=== PATIENT | male | born 1965 | race Caucasian/White ===

== ENCOUNTER 2016-07-31 | Emergency (ER) | payer BC ==
[2016-07-31 00:07] VITALS: BP 138/74; PULSE 71; RESP 18; TEMP 97.8
--- NOTE | 2016-07-31 00:24 | ED ---
Wound/Laceration HPI - General Chief Complaint: Wound/Laceration Stated Complaint: Lip Lac Time Seen by Provider: 07/31/16 00:13 Source: patient, RN notes reviewed Mode of arrival: ambulatory Limitations: no limitations - History of Present Illness Initial Comments: 50-year-old male presents emergency department with a chief complaint of lip laceration. This happened. He is intravenous tenderness he has no pain. He states that it was through the lid border so he thought that he should have stitches. He denies any other injuries he states he did not hit his head he did not pass out he has no neck pain he has no teeth pain he has now not mouth pain. Patient denies any recent fever, chills, shortness of breath, chest pain, back pain, abdominal pain, nausea vomiting, numbness or tingling, dysuria or hematuria, constipation or diarrhea, headaches or visual changes, or any other current symptoms. - Related Data Home Medications Medication Instructions Recorded Confirmed No Known Home Medications [No 07/31/16 07/31/16 Known Home Medications] Allergies Allergy/AdvReac Type Severity Reaction Status Date / Time No Known Allergies Allergy Verified 07/31/16 00:07 Review of Systems ROS Statement: Those systems with pertinent positive or pertinent negative responses have been documented in the HPI. ROS Other: All systems not noted in ROS Statement are negative. Past Medical History Past Medical History: No Reported History History of Any Multi-Drug Resistant Organisms: None Reported Past Surgical History: Hernia Repair, Orthopedic Surgery Past Psychological History: No Psychological Hx Reported Smoking Status: Never smoker Past Alcohol Use History: Occasional Past Drug Use History: None Reported General Exam Limitations: no limitations General appearance: alert, in no apparent distress Head exam: Present: other (Patient has1 cm lip laceration to the right lower lip.) Eye exam: Present: normal appearance, PERRL, EOMI. Absent: scleral icterus, conjunctival injection, periorbital swelling ENT exam: Present: normal exam, mucous membranes moist Neck exam: Present: normal inspection. Absent: tenderness, meningismus, lymphadenopathy Respiratory exam: Present: normal lung sounds bilaterally. Absent: respiratory distress, wheezes, rales, rhonchi, stridor Cardiovascular Exam: Present: regular rate, normal rhythm, normal heart sounds. Absent: systolic murmur, diastolic murmur, rubs, gallop, clicks Neurological exam: Present: alert, oriented X3, CN II-XII intact. Absent: motor sensory deficit Psychiatric exam: Present: normal affect, normal mood Skin exam: Present: warm, dry, intact, normal color. Absent: rash Course Vital Signs 07/31/16 00:03 Temperature 97.8 F Pulse Rate 71 Respiratory 18 Rate Blood Pressure 138/74 O2 Sat by Pulse 97 Oximetry Procedures - Procedures Initial comment: The laceration was then cleansed with Betadine and irrigated with normal saline. The wound was inspected, and there was no evidence of injury to deep structures. No foreign body was noted in the wound. A total of 2 skin sutures were placed utilizing 6-0 nylon to a 1 cm lip laceration Medical Decision Making - Medical Decision Making 50-year-old male presents for lip laceration. Patient underwent suture care. Discussed care of follow-up. We discussed return parameters. Patient stated he understood all cushions were answered. He will be discharged. Disposition Clinical Impression: Laceration of lip Disposition: HOME SELF-CARE Condition: Stable Instructions: Laceration (ED) Additional Instructions: Please use medication as discussed. Please follow up with family doctor if symptoms have not improved over the next two days. Please return to the emergency room if your symptoms increase or worsen or for any other concerns. Please return to the emergency room in 5 days to have sutures removed. Please leave wound covered for the first 24-48 hours and then leave open to air after that time. Please use clean soap and water to clean the suture area to prevent scabbing over the top of your sutures. Please watch for any signs of infection which may include but not limited to increased pain, swelling, redness, fever or chills. Please return to the emergency room if any signs of infection do occur. Please return to the emergency room for any other concerns or complications. Referrals: Yoel Wallace MD [Primary Care Provider] - 1-2 days Time of Disposition: 00:24
== END 2016-07-31 00:30 | disposition home or self-care (01) ==
LOC: EC
DX: S01.511A Laceration without foreign body of lip, initial encounter (principal); W21.210A Struck by ice hockey stick, initial encounter; Y93.65 Activity, lacrosse and field hockey
CPT/HCPCS: 12011; 99282

== ENCOUNTER 2018-03-06 09:01 | Day surgery (SDC) | payer BC ==
[2018-03-05 08:02] VITALS: BMI 32.5
[~2018-03-06 09:01] MED LIST: LACTATED RINGERS 1,000 ML IV SCH; LIDOCAINE 1% 20 ML VIAL (10MG/ML) FOR IV START INTRADERMA PRN; MIDAZOLAM 2 MG/2 ML VIAL IV PRN
[2018-03-06 09:32] VITALS: RESP 18; TEMP 97
[2018-03-06] MEDS ORDERED: LIDOCAINE 1% 20 ML VIAL (10MG/ML) FOR IV START INTRADERMA ONE (09:39)
[2018-03-06] MEDS ORDERED: LIDOCAINE 1% INJ 10MG/ML (20 ML MDV) ONE (10:18)
[2018-03-06] MEDS ORDERED: PROPOFOL 10 MG/ML 50 ML VIAL IV ONE (10:18)
[2018-03-06] MEDS ORDERED: PROPOFOL 10 MG/ML 20 ML VIAL IV ONE (10:18)
--- NOTE | 2018-03-06 11:01 | P.PCN ---
Date of Procedure: 03/06/18 Procedure(s) Performed: Procedure: 1. Esophagogastroduodenoscopy and biopsy. 2. Total colonoscopy. Preoperative diagnosis: Reflux symptoms and screening colonoscopy. Postoperative diagnosis: 1. Mild antral gastritis with no obvious esophagitis or complicated reflux disease. 2. Sigmoid diverticulosis with no evidence of acute diverticulitis, strictures, polyps or cancer. Preparation: HalfLytely prep. Sedation: Was provided by anesthesia. Brief clinical history: The patient is a 52-year-old male who has been experiencing heartburn and postprandial stomach upset for the last 6 months or so. The patient has seen his PCP and on rectal examination while in the office he was found to have positive occult blood on his stools. He has no history of overt bleeding or change in bowel habits. His last endoscopies were in 2008. Procedure: With the patient on his left lateral decubitus position and after informed consent and adequate sedation, the Olympus-GIF 160 video upper endoscope was used and was advanced under direct vision through the cricopharyngeus down the esophagus. GE junction was around 42-43 cm from the incisors and there was no definite hiatal hernia. The esophagus did not show any obvious esophagitis or complicated reflux disease. The endoscope was then passed into the stomach which was insufflated with air and inspected in detail including the retroflex view in the cardia. There was some mottling and erythema in the antrum but no ulcers or erosions. Pyloric channel, duodenal bulb, post bulbar area and descending duodenum appeared within normal limits. Because of his symptoms, I obtained biopsies from the duodenum, antrum and esophagus then the endoscope was withdrawn and I proceeded with the colonoscopy. Perianal area did not show any fissures or fistulas. There were no masses felt on digital rectal examination. The Olympus CFQ 160L video colonoscope was then inserted in the rectum in the usual fashion and advanced to the cecum. There were a few diverticular orifices seen scattered in the sigmoid but I saw no evidence of acute diverticulitis or strictures. There was no obvious polyps or tumors seen. The mucosa appeared healthy. I retroflexed the endoscope in the rectum before the endoscope was withdrawn. The patient tolerated the procedure well. Plan: The patient was reassured. He will continue current acid suppressive therapy you have started Will await biopsy results and make further recommendations based on his course and biopsy results. He will follow up with you as planned and I recommended repeat colonoscopy in 10 years. I will be happy to see in the office if his symptoms persist or change.
[2018-03-06 11:16] VITALS: BP 107/69; PULSE 47
== END 2018-03-06 11:49 | disposition home or self-care (01) ==
LOC: ORWHC2ENDO 09:01
DX: K29.50 Unspecified chronic gastritis without bleeding (principal); K57.30 Diverticulosis of large intestine without perforation or abscess without bleeding; K21.0 Gastro-esophageal reflux disease with esophagitis
CPT/HCPCS: 88305; 45378; 43239; J2001; J2704

== ENCOUNTER → 2018-06-23 | Outpatient (CLI) | payer BC ==
--- NOTE | 2018-06-23 09:38 | CT ---
EXAMINATION TYPE: CT soft tissue neck w con DATE OF EXAM: 06/23/2018 7:31 AM COMPARISON: None HISTORY: Swelling, mass, lump in left neck CT DLP: 729 mGycm Automated exposure control for dose reduction was used. CONTRAST: CT scan of the neck is performed following with IV Contrast, patient injected with 100 mL of Isovue 3 00. Axial images are obtained, coronal and sagittal reformatted images are reviewed. FINDINGS: Airway: Pathology tonsils show some calcifications consistent with chronic infection, there is some a ssociated thickening, correlate for pharyngitis. Parotid/submandibular glands: Left submandibular gland is slightly enlarged as compared to the right , no definite calculus or inflammatory change identified. Carotid/Vascular Structures: Patent Osseous Structures: Degenerative disc changes are present in the visualized spine. Other: There are inflammatory changes in the bilateral maxillary sinus. Orbits show symmetric appeara nce. IMPRESSION: Asymmetric appearance of the submandibular gland could be normal variant. No discrete ca lculus or inflammatory change. Correlate for pharyngitis.
== END | disposition home or self-care (01) ==
LOC: RADCTMAIN 07:03
PROVIDERS: ATTEND Otolaryngology
DX: R22.1 Localized swelling, mass and lump, neck (principal)
CPT/HCPCS: 70491; Q9967

== ENCOUNTER 2018-07-24 06:43 | Day surgery (SDC) | payer BC ==
[2018-07-23 09:07] VITALS: BMI 32.5
[~2018-07-24 06:43] MED LIST changes: +DEXAMETHASONE SOD PHOSPHATE 10 MG/ML 1 ML VIAL IV ONE; +DEXAMETHASONE SOD PHOSPHATE 4 MG/ML 1 ML VIAL IV ONE; +FAMOTIDINE 20 MG/2 ML VIAL IV ONE; +HYDROmorphone 0.5 MG/0.5 ML SYRINGE IVP PRN; -MIDAZOLAM 2 MG/2 ML VIAL IV PRN; +ONDANSETRON 4 MG/2 ML VIAL IVP ONE; +SCOPOLAMINE 1.5MG/72HR PATCH TRANSDERM ONE; +ceFAZolin 1,000 MG in DEXTROSE/WATER 1 50ML.BAG IV ONE
[2018-07-24] MEDS ORDERED: LIDOCAINE 1%-EPI 1:100,000 20 ML VIAL SQ ONE (07:22)
[2018-07-24] MEDS ORDERED: ROCURONIUM BROMIDE 10 MG/ML 10 ML VIAL IV ONE (07:23)
[2018-07-24] MEDS ORDERED: DEXAMETHASONE SOD PHOS (MDV) 100 MG/10 ML VIAL ONE (07:23)
[2018-07-24] MEDS ORDERED: PROPOFOL 10 MG/ML 20 ML VIAL IV ONE (07:23)
[2018-07-24] MEDS ORDERED: fentaNYL (PF) 50 MCG/ML 2 ML AMP ONE (07:23)
[2018-07-24] MEDS ORDERED: MIDAZOLAM 2 MG/2 ML VIAL ONE (07:23)
[2018-07-24] MEDS ORDERED: LIDOCAINE 1% INJ 10MG/ML (20 ML MDV) ONE (07:23)
[2018-07-24 08:26] VITALS: TEMP 97.8
--- NOTE | 2018-07-24 08:38 | P.OP ---
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 Patient's been on multiple antibiotics. We originally recommended surgical removal of this left submandibular gland but the patient wishes to try a conservative approach with a Dr. bundy and the balloon dilatation of the docs. He understands that the cure rate is not 100% but he is willing to try this more conservative procedure so he can preserve the gland. I did review the results of the patient's CAT scan demonstrating some sialolithiasis at the floor the mouth and stenosis of the left submandibular duct Operative Findings: Patient had significant stenosis of the left submandibular duct. Small stones were extracted and the duct was dilated multiple adhesions were encountered Description of Procedure: This patient was taken to the operative room and placed in the supine position. A general inhalation anesthetic was administered to the patient by mask and subsequently intubated with a cuffed endotracheal tube by the department of anesthesia. The patient was monitored throughout the entire case by the department of anesthesia. A functioning IV line was in place. The mouth was opened and a bite block was placed. The left Warthin's duct was identified and the ductal orifice was dilated. We passed multiple lacrimal probes and dilated the duct. Small pieces of stone was extruding from the orifice. We dilated the duct as far as possible for 3 mm dilatation. We utilized a lacrimal dilatation catheter for the dilatation. The patient tolerated this well and the patient was taken to postanesthesia recovery in excellent condition. Excellent salivary flow was encountered.
[2018-07-24 08:41] VITALS: RESP 18
[2018-07-24 09:28] VITALS: BP 125/84; PULSE 65
== END 2018-07-24 09:47 | disposition home or self-care (01) ==
LOC: OR 06:43
PROVIDERS: ATTEND Otolaryngology
DX: K11.23 Chronic sialoadenitis (principal); K11.5 Sialolithiasis; K11.8 Other diseases of salivary glands; Z79.891 Long term (current) use of opiate analgesic; Z79.899 Other long term (current) drug therapy; E78.5 Hyperlipidemia, unspecified
CPT/HCPCS: 42650; C1726; J2250; J1100 ×2; J2405; J2001; J3010; J0690; J2704

== ENCOUNTER → 2019-02-05 | Outpatient (CLI) | payer BC ==
--- NOTE | 2019-02-05 16:10 | US ---
EXAMINATION TYPE: US abdomen complete DATE OF EXAM: 02/05/2019 COMPARISON: NONE CLINICAL HISTORY: R10.11 RUQ ABD PAIN. EXAM MEASUREMENTS: Liver Length: 14.4 cm Gallbladder Wall: 0.2 cm CBD: 0.3 cm Spleen: 11.0 cm Right Kidney: 13.1 x 4.8 x 5.4 cm Left Kidney: 12.8 x 5.8 x 5.5 cm Pancreas: Partially obscured by bowel gas, portions visualized wnl Liver: slightly heterogeneous Gallbladder: some dependant sludge Evidence for sonographic Tapia's sign: no CBD: wnl Spleen: wnl Right Kidney: measures large Left Kidney: measures large Upper IVC: wnl Abd Aorta: proximal aorta measures 3.3 x 3.3cm, otherwise wnl, bifurcation obscured by bowel gas IMPRESSION: 1. No acute ultrasound abnormality of the abdomen
== END | disposition home or self-care (01) ==
LOC: RADUSWWP 06:48
PROVIDERS: ATTEND Internal Medicine
DX: R10.11 Right upper quadrant pain (principal)
CPT/HCPCS: 76700

== ENCOUNTER 2019-10-17 22:58 | Emergency (ER) | payer BC ==
[2019-10-17 23:06] VITALS: RESP 16; TEMP 97.9
[2019-10-17] MEDS ORDERED: KETOROLAC 60 MG/2 ML VIAL IM STA (23:54)
[2019-10-17] MEDS ORDERED: KETOROLAC 30 MG/ML 1 ML VIAL IVP STA (23:55)
[2019-10-17] MEDS ORDERED: MORPHINE SULFATE 4 MG/ML SYRINGE IV STA (23:56)
--- NOTE | 2019-10-18 00:23 | XR ---
EXAMINATION TYPE: XR knee 4V RT DATE OF EXAM: 10/18/2019 COMPARISON: NONE HISTORY: Knee pain TECHNIQUE: 4 views FINDINGS: I see no fracture nor dislocation. Joint spaces are fairly normal. There is no definite freddy nt effusion. There is minor spurring on the patella. IMPRESSION: No acute abnormality of the right knee. No fracture seen.
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
[2019-10-18] MEDS ORDERED: ACET/COD 300 MG/30 MG STARTER PACK 6 TAB BTL PO STA (00:57)
[2019-10-18 01:34] VITALS: BP 125/75; PULSE 72
== END 2019-10-18 01:33 | disposition home or self-care (01) ==
LOC: EC 22:58
DX: S83.91XA Sprain of unspecified site of right knee, initial encounter (principal); M25.461 Effusion, right knee; S90.819A Abrasion, unspecified foot, initial encounter; E78.5 Hyperlipidemia, unspecified; Z79.899 Other long term (current) drug therapy; Z98.890 Other specified postprocedural states; V19.3XXA Pedal cyclist (driver) (passenger) injured in unspecified nontraffic accident, initial encounter; Y92.488 Other paved roadways as the place of occurrence of the external cause; Y93.55 Activity, bike riding
CPT/HCPCS: 73564; 99284; 96374; 96375; J2270; J1885

== ENCOUNTER → 2019-11-13 | Outpatient (CLI) | payer BC ==
--- NOTE | 2019-11-13 09:55 | CT ---
EXAMINATION TYPE: CT abdomen pelvis wo con DATE OF EXAM: 11/13/2019 COMPARISON: 05/09/2016 HISTORY: midline pelvic pain, history of pelvic mesh surgery, renal stone protocol CT DLP: 1080.7 mGycm Automated exposure control for dose reduction was used. TECHNIQUE: Helical acquisition of images was performed from the lung bases through the pelvis. FINDINGS: LUNG BASES: No significant abnormality is appreciated. LIVER/GB: Low-attenuation the liver can be associated with hepatic steatosis. No definite calcified g allstones although there is intermediate density within the gallbladder which could be associated wit h gallbladder sludge. PANCREAS: No significant abnormality is seen. SPLEEN: No significant abnormality is seen. ADRENALS: 7 mm nodularity left adrenal gland stable and too small to characterize KIDNEYS: There is a nonobstructing 1 mm right lower pole renal calculus.. ADENOPATHY: None visualized. OSSEOUS STRUCTURES: Mild hypertrophic change vertebral column.. BOWEL: There is changes of diverticulosis in the lower pelvis with mild pericolonic inflammatory paola nge adjacent the sigmoid colon noted on image 120 08/15/2024 suggestive of mild acute diverticulitis. N o free air or abscess. Appendix normal. Single prominent small bowel loop in the lower abdomen may be related to ileus secondary to the suspected diverticulitis. Correlate clinically. Other etiologies n ot excluded. OTHER: Post surgical changes involving the anterior abdominal wall. There is prostate calcifications. IMPRESSION: 1. Correlate for mild uncomplicated acute sigmoid diverticulitis. Follow-up to resolution recommended to exclude underlying mucosal lesion. 2. Postsurgical changes. 3. Nonobstructing 1 mm lower pole right renal calculus.
== END | disposition home or self-care (01) ==
LOC: RADCTMAIN 09:10
PROVIDERS: ATTEND Internal Medicine
DX: K57.32 Diverticulitis of large intestine without perforation or abscess without bleeding (principal); N20.0 Calculus of kidney
CPT/HCPCS: 74176

== ENCOUNTER → 2020-06-27 | Outpatient (CLI) | payer BC ==
--- NOTE | 2020-06-27 11:32 | ECHOS ---
STRESS ECHOCARDIOGRAM DATE OF SERVICE: 06/27/2020 LUMASON: Vial INDICATIONS: Chest pain. MEDICATIONS: BASELINE HEART RATE: 54 BASELINE BLOOD PRESSURE: 131/65 MAXIMUM HEART RATE: 137 MAXIMUM BLOOD PRESSURE: 135/77 85% MPHR: 142 100% MPHR: 167 METS: 11.7 MAXIMUM STAGE REACHED: IV TOTAL EXERCISE TIME: 10 minutes 39 seconds CLINICAL INFORMATION: STRESS DATA: Heart rate 54, pressure is 131/65 mmHg. Baseline EKG showed sinus mechanism. The patient exercised on the treadmill according to Pb protocol for a total of 10 minutes and 39 seconds and achieved 11.7 METs. Max heart rate was 137 which is about 82% of maximum predicted heart rate. Maximum blood pressure was 135/77 mmHg. Clinically, the patient did not have any symptoms of chest pain or chest discomfort. The EKG did not show any significant ST or T-wave abnormalities concerning for ischemia. Analysis on echocardiogram images from parasternal long axis view, parasternal short axis view, apical 4 chamber and apical 2 chamber obtained as the baseline images, at the peak of the heart rate as well as on recovery. The echocardiogram images showed good augmentation in the left ventricular systolic function. CONCLUSION: 1. Excellent exercise tolerance. 2. Normal EKG in response to exercise. 3. Normal echocardiogram in response to exercise. MMODL / IJN: [id number] /
== END | disposition home or self-care (01) ==
LOC: RADNMMAIN 09:03
PROVIDERS: ATTEND Internal Medicine
DX: R07.9 Chest pain, unspecified (principal)
CPT/HCPCS: 93351

== ENCOUNTER → 2020-08-31 | Day surgery (SDC) | payer BC ==
[2020-08-30 09:35] VITALS: BMI 32.5
[~2020-08-31] MED LIST changes: -DEXAMETHASONE SOD PHOSPHATE 10 MG/ML 1 ML VIAL IV ONE; -DEXAMETHASONE SOD PHOSPHATE 4 MG/ML 1 ML VIAL IV ONE; -FAMOTIDINE 20 MG/2 ML VIAL IV ONE; -HYDROmorphone 0.5 MG/0.5 ML SYRINGE IVP PRN; -LACTATED RINGERS 1,000 ML IV SCH; +LIDOCAINE 1% (10MG/ML) FOR IV START INTRADERMA PRN; -LIDOCAINE 1% 20 ML VIAL (10MG/ML) FOR IV START INTRADERMA PRN; +LIDOCAINE 1% INJ 10MG/ML (20 ML MDV) ONE; -ONDANSETRON 4 MG/2 ML VIAL IVP ONE; +PROPOFOL 10 MG/ML 20 ML VIAL IV ONE; -SCOPOLAMINE 1.5MG/72HR PATCH TRANSDERM ONE; -ceFAZolin 1,000 MG in DEXTROSE/WATER 1 50ML.BAG IV ONE
[2020-08-31] MEDS: LACTATED RINGERS 1,000 ML IV SCH ×2 (10:36→10:44)
[2020-08-31 10:45] VITALS: TEMP 97.5
--- NOTE | 2020-08-31 11:31 | P.PCN ---
Date of Procedure: 08/31/20 Procedure(s) Performed: Brief history: Patient is a pleasant 55-year-old white female scheduled for an elective upper endoscopy as well as colonoscopy as a part of evaluation of epigastric pain/GERD and Hemoccult-positive stool Procedure performed: Esophagogastroduodenoscopy biopsy Colonoscopy with biopsy Preoperative diagnosis: Epigastric pain/GERD Hemoccult-positive stool Anesthesia: [facility] [place] Procedure: After informed consent was obtained from the patient was brought into the endoscopy unit and IV sedation was administered by anesthesia under continuous monitoring. Initially upper endoscopy was done. The Olympus GF 160 video endoscope was inserted inserted into the mouth and esophagus intubated without any difficulty and was gradually advanced into the stomach and duodenum and carefully examined. The bulb and second part of the duodenum appeared normal. The scope was then withdrawn into the stomach adequately insufflated with air and upon careful examination the antrum had mild gastritis and biopsies were done from this area. The body, cardia and fundus appeared normal. The scope was then withdrawn into the esophagus. The GE junction was located at 40 cm to the incisors. It appeared regular with no erythema erosions or ulcerations. Rest of the esophagus appeared normal. biopsies were done from the distal esophagus Patient tolerated the procedure well. At this time the patient continued to remain sedation. Initial digital rectal examination was normal. Olympus CF 160 video colonoscope was then inserted into the rectum and gradually advanced to the cecum without any difficulty. Careful examination was performed as the scope was gradually being withdrawn. The prep was excellent. The cecum, ascending colon, transverse colon, descending colon, sigmoid colon appeared normal. in the distal rectum there was a 3 mm and 5 mm polyp that was removed by cold biopsy. Scattered sigmoid diverticulosis seen. Retroflexion was performed in the rectum and no lesions were noted. Patient tolerated the procedure well. Impression: 1. Upper endoscopy revealed mild antral gastritis but no evidence of esophagitis or peptic ulcer 2. Colonoscopy revealed a 3 mm and 5 mm distal rectal polyps status post removal by cold biopsy and scattered sigmoid diverticulosis Recommendations: Findings of this examination were discussed with the patient as well as his family. He was advised to follow with the biopsy results. He'll continue with Protonix 40 mg daily and follow antireflux measures. If the biopsy the colon polyps Revealed an adenoma he can have a repeat colonoscopy in 5 years.
[2020-08-31 12:00] VITALS: BP 121/78; PULSE 71; RESP 16
== END ==
LOC: ORWHC2ENDO 09:46
PROVIDERS: ATTEND Internal Medicine Gastroenterology
DX: K29.70 Gastritis, unspecified, without bleeding (principal); K31.9 Disease of stomach and duodenum, unspecified; K62.1 Rectal polyp; K57.30 Diverticulosis of large intestine without perforation or abscess without bleeding; E78.5 Hyperlipidemia, unspecified; Z79.899 Other long term (current) drug therapy; Z98.890 Other specified postprocedural states
CPT/HCPCS: 88305; 45380; 43239; J2001; J2704

== ENCOUNTER 2020-10-31 20:07 | Emergency (ER) | payer BC ==
[2020-10-31] MEDS ORDERED: ACETAMINOPHEN TAB 500 MG TAB PO STA (20:34)
[2020-10-31] MEDS ORDERED: IBUPROFEN 600 MG TAB PO STA (20:35)
[2020-10-31] MEDS ORDERED: SODIUM CHLORIDE 0.9% 1,000 ML IV STA (20:35)
--- NOTE | 2020-10-31 20:42 | ED ---
General Adult HPI - General Chief complaint: Fever Stated complaint: COVID + Time Seen by Provider: 10/31/20 20:14 Source: patient, EMS Mode of arrival: EMS - History of Present Illness Initial comments: Patient is a 55-year-old male with history of hyperlipidemia, presenting to the emergency Department with complaints of increase in his colon with symptoms. Patient states he started developing symptoms 3 days ago while he was in [place], he got tested 2 days ago and it came back positive. Patient states returns to [place] today and has been having and increase in his symptoms. He states he is feeling short of breath with exertion, having intense body aches, chills, nausea. He states his appetite is very low, his taste and smell are mildly infected as well. He denies history of asthma or COPD, is a nonsmoker. 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 He denies any chest pains but is having some low back discomfort. He did take one Tylenol approximately 3 hours ago. He denies any further complaints at this time. Upon arrival to the ER, he is febrile to 101.3, 95% on room air, rest of vitals normal. - Related Data Home Medications Medication Instructions Recorded Confirmed Acetaminophen Tab [Tylenol Tab] 500 mg PO Q6H PRN 10/31/20 10/31/20 Fexofenadine HCl 180 mg PO DAILY PRN 10/31/20 10/31/20 Fluticasone Nasal [place] [Flonase 2 spr EA NOSTRIL DAILY PRN 10/31/20 10/31/20 Nasal [place]] Montelukast Sodium [Singulair] 10 mg PO HS PRN 10/31/20 10/31/20 Pantoprazole [Protonix] 40 mg PO DAILY PRN 10/31/20 10/31/20 Pitavastatin Calcium [Livalo] 4 mg PO HS 10/31/20 10/31/20 Previous Rx's Medication Instructions Recorded Dexamethasone [Decadron] 6 mg PO DAILY 5 Days #5 tablet 10/31/20 Ondansetron Odt [Zofran Odt] 4 mg PO Q8HR PRN #10 tab 10/31/20 Allergies Allergy/AdvReac Type Severity Reaction Status Date / Time No Known Allergies Allergy Verified 10/31/20 20:41 Review of Systems ROS Statement: Those systems with pertinent positive or pertinent negative responses have been documented in the HPI. ROS Other: All systems not noted in ROS Statement are negative. Past Medical History Past Medical History: GERD/Reflux, Hyperlipidemia, Osteoarthritis (OA) Additional Past Medical History / Comment(s): hx. colon polyp, frequent acid reflux risa @[facility] History of Any Multi-Drug Resistant Organisms: None Reported Past Surgical History: Hernia Repair, Orthopedic Surgery Additional Past Surgical History / Comment(s): BILAT SHOULDER SX, acl reconstruction right knee. RT HAND SX. LT ANKLE SX. RHINOPLASTY. BILAT SPORT HERNIA REPAIR, salivary gland removed 2019 Past Anesthesia/Blood Transfusion Reactions: Previous Problems w/ Anesthesia, Postoperative Nausea & Vomiting (PONV) Additional Past Anesthesia/Blood Transfusion Reaction / Comment(s): had issue after salivary gland surg @[facility] last year w/bloating & nausea but has never had any problems before Past Psychological History: No Psychological Hx Reported Smoking Status: Never smoker Past Alcohol Use History: Rare Past Drug Use History: None Reported - Past Family History Mother Family Medical History: No Reported History General Exam - General Exam Comments Initial Comments: GENERAL: Patient is well-developed and well-nourished. Patient is nontoxic and in no acute distress. HEAD: Atraumatic, normocephalic. EYES: Pupils equal round and reactive to light, extraocular movements intact, sclera anicteric, conjunctiva are normal. Eyelids were unremarkable. ENT: TMs normal, nares patent, oropharynx clear without exudates. Moist mucous membranes. NECK: Normal range of motion, supple without lymphadenopathy or JVD. LUNGS: Unlabored respirations. Breath sounds clear to auscultation bilaterally and equal. No wheezes rales or rhonchi. HEART: Regular rate and rhythm without murmurs, rubs or gallops. ABDOMEN: Soft, nontender, normoactive bowel sounds. No guarding, no rebound. No masses appreciated. : Deferred MUSCULOSKELETAL: Normal extremities with adequate strength and normal range of motion, no pitting or edema. No clubbing or cyanosis. NEUROLOGICAL: Patient is alert and oriented x 3. Motor and sensory are also intact. Cranial nerves II through XII grossly intact. Symmetrical smile. Normal speech, normal gait. PSYCH: Normal mood, normal affect. SKIN: Warm, Dry, normal turgor, no rashes or lesions noted. Course Vital Signs 05/17/21 05/17/21 20:11 20:19 Temperature 101.3 F H Pulse Rate 83 Respiratory 20 20 Rate Blood Pressure 147/85 O2 Sat by Pulse 95 Oximetry Medical Decision Making - Medical Decision Making Patient is a 55-year-old male presenting to the emergency Department with complaints of worsening Covid symptoms. Should symptoms started 3 days ago, he tested +2 days ago while in [place]. Return to [place] today. Complaining of increase in shortness of breath, body aches, fatigue and no appetite. He did arrive febrile to 101.3. He took some Tylenol about 3 hours prior to arrival. Denies any chest pains. No history of asthma or COPD, is a nonsmoker. Lab work looks stable, Lactic acid is normal at 1.1, normal white count, CRP is 2.1. Chest x-ray today shows some patchy peripheral density suspected at the lung bases, correlate for pneumonia. He since pulse ox has remained normal in the ER, 95-97%. I discussed with patient that he is stable for discharge. I will start him on some steroids for symptomatic relief. I recommend alternate between Tylenol and Motrin for fever and body aches. I will also send him home with some Zofran for the occasional nausea seeking continue with his fluids. He is to follow-up with his PCP. Return parameters were discussed with the patient and he verbalized understanding. Case discussed with Dr. Polanco. - Lab Data Result diagrams: 10/31/20 20:59 10/31/20 20:59 Lab Results 10/31/20 10/31/20 10/31/20 Range/Units 20:59 20:59 20:59 WBC 4.9 (3.8-10.6) k/uL RBC 4.51 (4.30-5.90) m/uL Hgb 13.8 (13.0-17.5) gm/dL Hct 38.7 L (39.0-53.0) % MCV 85.8 (80.0-100.0) fL MCH 30.7 (25.0-35.0) pg MCHC 35.8 (31.0-37.0) g/dL RDW 12.7 (11.5-15.5) % Plt Count 141 L (150-450) k/uL MPV 8.4 Neutrophils % 77 % Lymphocytes % 17 % Monocytes % 5 % Eosinophils % 0 % Basophils % 0 % Neutrophils # 3.8 (1.3-7.7) k/uL Lymphocytes # 0.9 L (1.0-4.8) k/uL Monocytes # 0.2 (0-1.0) k/uL Eosinophils # 0.0 (0-0.7) k/uL Basophils # 0.0 (0-0.2) k/uL Sodium 138 (137-145) mmol/L Potassium 3.7 (3.5-5.1) mmol/L Chloride 106 (98-107) mmol/L Carbon Dioxide 22 (22-30) mmol/L Anion Gap 10 mmol/L BUN 15 (9-20) mg/dL Creatinine 0.75 (0.66-1.25) mg/dL Est GFR (CKD-EPI)AfAm >90 (>60 ml/min/1.73 sqM) Est GFR (CKD-EPI)NonAf >90 (>60 ml/min/1.73 sqM) Glucose 149 H (74-99) mg/dL Plasma Lactic Acid Serjio 1.1 (0.7-2.0) mmol/L Calcium 8.9 (8.4-10.2) mg/dL Magnesium 1.9 (1.6-2.3) mg/dL Total Bilirubin 0.4 (0.2-1.3) mg/dL AST 29 (17-59) U/L ALT 34 (4-49) U/L Alkaline Phosphatase 71 (38-126) U/L Lactate Dehydrogenase 603 (313-618) U/L C-Reactive Protein 2.1 H (<1.0) mg/dL Total Protein 6.9 (6.3-8.2) g/dL Albumin 4.2 (3.5-5.0) g/dL Disposition Clinical Impression: Pneumonia due to COVID-19 virus Disposition: HOME SELF-CARE Condition: Stable Instructions (If sedation given, give patient instructions): Coronavirus Disease 2019 (COVID-19) Additional Instructions: Please return to the Emergency Department if symptoms worsen or any other concerns. Recommend alternating between Tylenol and Motrin for fever and body aches. Take steroids as prescribed. Increase your fluid intake. May use Zofran as needed for nausea. Follow-up with your primary care physician. Prescriptions: Dexamethasone [Decadron] 6 mg PO DAILY 5 Days #5 tablet Ondansetron Odt [Zofran Odt] 4 mg PO Q8HR PRN #10 tab PRN Reason: Nausea Is patient prescribed a controlled substance at d/c from ED?: No Referrals: Roxann De Paz MD [Primary Care Provider] - 1-2 days Time of Disposition: 21:53
[2020-10-31] MEDS ORDERED: ACETAMINOPHEN TAB 325 MG TAB PO STA (20:51)
[2020-10-31 21:16] LABS: Basophils % (A) 0 %; Eosinophils % (A) 0 %; HCT 38.7 % (39.0-53.0); HGB 13.8 gm/dL (13.0-17.5); Lymphocytes # (A) 0.9 k/uL (1.0-4.8); Lymphocytes % (A) 17 %; MCH 30.7 pg (25.0-35.0); MCHC 35.8 g/dL (31.0-37.0); MCV 85.8 fL (80.0-100.0); Mean Platelet Volume 8.4; Monocytes # (A) 0.2 k/uL (0-1.0); Monocytes % (A) 5 %; Neutrophils # (A) 3.8 k/uL (1.3-7.7); Neutrophils % (A) 77 %; Platelet Count 141 k/uL (150-450); RBC 4.51 m/uL (4.30-5.90); RDW 12.7 % (11.5-15.5); WBC 4.9 k/uL (3.8-10.6)
--- NOTE | 2020-10-31 21:18 | XR ---
EXAMINATION TYPE: XR chest 1V portable DATE OF EXAM: 10/31/2020 COMPARISON: NONE HISTORY: Suspected Covid 19 pneumonia, shortness of breath and fever, difficulty breathing TECHNIQUE: Single frontal view of the chest is obtained. FINDINGS: There is some patchy peripheral density suspected at the lung bases, no pneumothorax or pl eural effusion. The cardiac silhouette size is within normal limits. The osseous structures are in tact. IMPRESSION: Correlate for pneumonia, follow-up suggested
[2020-10-31 21:27] LABS: ALT 34 U/L (4-49); AST 29 U/L (17-59); African American GFR (CKD) >90 (>60 ml/min/1.73 sqM); Albumin 4.2 g/dL (3.5-5.0); Alkaline Phosphatase 71 U/L (38-126); Anion Gap 10 mmol/L; Blood Urea Nitrogen 15 mg/dL (9-20); C Reactive Protein 2.1 mg/dL (<1.0); Calcium 8.9 mg/dL (8.4-10.2); Carbon Dioxide 22 mmol/L (22-30); Chloride 106 mmol/L (98-107); Glucose 149 mg/dL (74-99); LDH 603 U/L (313-618); Magnesium 1.9 mg/dL (1.6-2.3); Non-African American GFR(CKD) >90 (>60 ml/min/1.73 sqM); Potassium 3.7 mmol/L (3.5-5.1); Sodium 138 mmol/L (137-145); Total Bilirubin 0.4 mg/dL (0.2-1.3); Total Protein 6.9 g/dL (6.3-8.2)
[2020-10-31] MEDS ORDERED: DEXAMETHASONE SOD PHOSPHATE 10 MG/ML 1 ML VIAL IV STA (21:49)
[2020-10-31 22:22] VITALS: BP 113/75; PULSE 63; RESP 18; TEMP 99.1
== END 2020-10-31 22:22 | disposition home or self-care (01) ==
LOC: EC 20:07
DX: U07.1 COVID-19 (principal); J12.82 Pneumonia due to coronavirus disease 2019; E78.5 Hyperlipidemia, unspecified; M19.90 Unspecified osteoarthritis, unspecified site; K21.9 Gastro-esophageal reflux disease without esophagitis
CPT/HCPCS: 36415; 80053; 83605; 83615; 83735; 85025; 86140; 71045; 99285; 96374; 96361; J1100

== ENCOUNTER 2020-11-24 06:22 | Day surgery (SDC) | payer BC, OTHER ==
[2020-11-22 12:51] VITALS: BMI 33.3
[~2020-11-24 06:22] MED LIST changes: +DEXAMETHASONE SOD PHOSPHATE 4 MG/ML 1 ML VIAL IV ONE; +DEXAMETHASONE SOD PHOSPHATE 4 MG/ML 1 ML VIAL IV PRN; +FAMOTIDINE 20 MG/2 ML VIAL IV PRN; +LACTATED RINGERS 1,000 ML IV SCH; -LIDOCAINE 1% (10MG/ML) FOR IV START INTRADERMA PRN; -LIDOCAINE 1% INJ 10MG/ML (20 ML MDV) ONE; +MELOXICAM 7.5 MG TAB PO PRN; +ONDANSETRON 4 MG/2 ML VIAL IVP ONE; +ONDANSETRON 4 MG/2 ML VIAL IVP PRN; +OXYMETAZOLINE 0.05% NASL SPRAY 1 SPRAY BOTTLE EA NOSTRIL PRN; -PROPOFOL 10 MG/ML 20 ML VIAL IV ONE
[2020-11-24] MEDS ORDERED: LIDOCAINE 1% (10MG/ML) FOR IV START INTRADERMA ONE (07:00)
[2020-11-24] MEDS ORDERED: SCOPOLAMINE 1.5MG/72HR PATCH TRANSDERM ONE (07:10)
[2020-11-24] MEDS ORDERED: ONDANSETRON 4 MG/2 ML VIAL IVP ONE (07:10)
[2020-11-24] MEDS ORDERED: DEXAMETHASONE SOD PHOSPHATE 4 MG/ML 1 ML VIAL IV ONE (07:10)
[2020-11-24 07:16] LABS: Glucose,Whole Blood 112 mg/dL (75-99)
[2020-11-24] MEDS ORDERED: DEXAMETHASONE SOD PHOSPHATE 10 MG/ML 1 ML VIAL ONE (07:31)
[2020-11-24] MEDS ORDERED: fentaNYL (PF) 50 MCG/ML 2 ML AMP ONE ×2 (07:31→11:03)
[2020-11-24] MEDS ORDERED: PROPOFOL 10 MG/ML 20 ML VIAL IV ONE (07:31)
[2020-11-24] MEDS ORDERED: MIDAZOLAM 2 MG/2 ML VIAL ONE (07:31)
[2020-11-24] MEDS ORDERED: SUCCINYLCHOLINE CHLORIDE 100 MG/5 ML SYR IV ONE (07:31)
[2020-11-24] MEDS ORDERED: LIDOCAINE 1% INJ 10MG/ML (20 ML MDV) ONE (07:31)
[2020-11-24] MEDS ORDERED: BUPIVACAINE (PF) 0.5% 30 ML VIAL SQ ONE ×2 (07:56)
[2020-11-24] MEDS ORDERED: LIDOCAINE 2%-EPI 1:100,000 20 ML VIAL SQ ONE ×2 (07:56)
[2020-11-24] MEDS ORDERED: EPINEPHrine 1 MG/ML (MDV) 30 ML VIAL TOPICAL ONE ×2 (07:56)
[2020-11-24] MEDS ORDERED: FLUORESCEIN STRIPS 1 MG STRIP MISCELLANE ONE (07:56)
[2020-11-24] MEDS ORDERED: FERRIC SUBSULFATE (MONSELS) JAR TOPICAL ONE (08:24)
[2020-11-24] MEDS: HYDROmorphone 0.5 MG/0.5 ML SYRINGE IVP PRN ×4 (08:56→09:36)
[2020-11-24 09:02] VITALS: TEMP 98.6
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
[2020-11-24] MEDS ORDERED: hydrALAZINE HCL 20 MG/ML 1 ML VIAL IVP ONE (09:22)
[2020-11-24] MEDS ORDERED: LACTATED RINGERS 1,000 ML IV ONE ×2 (09:23)
[2020-11-24] MEDS ORDERED: MEPERIDINE 50 MG/ML SYRINGE IVP ONE (09:51)
[2020-11-24 10:03] VITALS: RESP 18
[2020-11-24] MEDS ORDERED: oxyCODONE-APAP 5-325MG 1 EACH TAB ONE (10:15)
[2020-11-24] MEDS ORDERED: oxyCODONE-APAP 5-325MG 1 EACH TAB PO ONE (10:17)
[2020-11-24] MEDS ORDERED: fentaNYL (PF) 50 MCG/ML 2 ML AMP IVP ONE ×2 (11:05→11:34)
[2020-11-24 11:38] VITALS: BP 144/80; PULSE 69
== END 2020-11-24 12:05 | disposition home or self-care (01) ==
LOC: OR 06:22
PROVIDERS: ATTEND Otolaryngology
DX: J32.0 Chronic maxillary sinusitis (principal); J34.2 Deviated nasal septum; J34.3 Hypertrophy of nasal turbinates; E78.5 Hyperlipidemia, unspecified; K21.9 Gastro-esophageal reflux disease without esophagitis; Z86.010 Personal history of colon polyps; Z98.890 Other specified postprocedural states; Z79.52 Long term (current) use of systemic steroids; Z79.1 Long term (current) use of non-steroidal anti-inflammatories (NSAID); Z79.891 Long term (current) use of opiate analgesic; Z79.899 Other long term (current) drug therapy; Z97.2 Presence of dental prosthetic device (complete) (partial)
CPT/HCPCS: 88305; 88300; 30520; 31267; 30140; J0171; J2250; J0360; J1100 ×2; J2175; J2405; J0690; J2001; J3010; J0330; J2704; J1170

== ENCOUNTER 2021-04-14 11:16 | Emergency (ER) | payer BC ==
[2021-04-14 11:22] VITALS: RESP 18; TEMP 97.6
[2021-04-14] MEDS ORDERED: SODIUM CHLORIDE 0.9% 1,000 ML IV STA (11:37)
[2021-04-14] MEDS ORDERED: ASPIRIN 81 MG PO STA (11:37)
[2021-04-14 12:11] LABS: ALT 39 U/L (4-49); AST 27 U/L (17-59); African American GFR (CKD) >90 (>60 ml/min/1.73 sqM); Albumin 4.6 g/dL (3.5-5.0); Alkaline Phosphatase 69 U/L (38-126); Anion Gap 10 mmol/L; Blood Urea Nitrogen 14 mg/dL (9-20); Calcium 9.2 mg/dL (8.4-10.2); Carbon Dioxide 20 mmol/L (22-30); Chloride 107 mmol/L (98-107); Glucose 104 mg/dL (74-99); Lipase 100 U/L (23-300); Magnesium 1.9 mg/dL (1.6-2.3); Non-African American GFR(CKD) >90 (>60 ml/min/1.73 sqM); Potassium 3.9 mmol/L (3.5-5.1); Sodium 137 mmol/L (137-145); Total Bilirubin 0.6 mg/dL (0.2-1.3); Total Protein 7.6 g/dL (6.3-8.2)
[2021-04-14 12:18] LABS: INR 0.9 (<1.2); Partial Thromboplastin Time 23.4 sec (22.0-30.0); Prothrombin Time 10.2 sec (9.0-12.0)
--- NOTE | 2021-04-14 12:22 | XR ---
EXAMINATION TYPE: XR chest 2V DATE OF EXAM: 04/14/2021 COMPARISON: Chest x-ray 10/31/2020 HISTORY: Chest pain TECHNIQUE: Frontal and lateral views of the chest are obtained. FINDINGS: There is no focal air space opacity, pleural effusion, or pneumothorax seen. The cardiac silhouette size is within normal limits. There are overlying leads. The osseous structures are intac t. IMPRESSION: No acute cardiopulmonary process.
[2021-04-14 12:34] LABS: Basophils % (A) 0 %; Eosinophils # (A) 0.1 k/uL (0-0.7); Eosinophils % (A) 2 %; HCT 43.6 % (39.0-53.0); HGB 15.2 gm/dL (13.0-17.5); Lymphocytes % (A) 32 %; MCH 30.6 pg (25.0-35.0); MCHC 34.9 g/dL (31.0-37.0); MCV 87.8 fL (80.0-100.0); Mean Platelet Volume 8.3; Monocytes # (A) 0.3 k/uL (0-1.0); Monocytes % (A) 5 %; Neutrophils # (A) 3.6 k/uL (1.3-7.7); Neutrophils % (A) 59 %; Platelet Count 185 k/uL (150-450); RBC 4.97 m/uL (4.30-5.90); WBC 6.1 k/uL (3.8-10.6)
--- NOTE | 2021-04-14 13:28 | ED ---
Chest Pain HPI - General Chief Complaint: Chest Pain Stated Complaint: Chest pain Time Seen by Provider: 04/14/21 11:23 Source: patient, RN notes reviewed Mode of arrival: wheelchair Limitations: no limitations - History of Present Illness Initial Comments: This a 55-year-old male presents emergency Department with chief complaint of near syncope, palpitations, shortness breath. Patient states that he was at work states that he wants to get patient's chart when he started feeling very lightheaded, flushed feeling, blurred vision. He states that it did eventually subside states that he noticed today that he just hasn't felt well. He states it feels like he can't get a deep breath and it. Patient states she has no history of cardiac disease including no risk factors that she has hypertension hyperlipidemia and diabetes. Patient is nonsmoker no asthmaCOPD. Patient has stress echo this year which was negative. Patient states this feels improved at this time he did have some slight chest discomfort, palpitations which had also subsided. - Related Data Home Medications Medication Instructions Recorded Confirmed Pitavastatin Calcium [Livalo] 4 mg PO DAILY 10/31/20 11/22/20 Amoxicillin 500 mg PO BID 11/22/20 11/22/20 predniSONE 5 mg PO TID 11/22/20 11/22/20 Allergies Allergy/AdvReac Type Severity Reaction Status Date / Time No Known Allergies Allergy Verified 04/14/21 11:21 Review of Systems ROS Statement: Those systems with pertinent positive or pertinent negative responses have been documented in the HPI. ROS Other: All systems not noted in ROS Statement are negative. EKG Findings - EKG Comments: EKG Findings:: EKG performed at 11:20 sinus bradycardia rate of 54 MT 226 QRS 12 QTC is QTC 420/398 Past Medical History Past Medical History: GERD/Reflux, Hyperlipidemia Additional Past Medical History / Comment(s): hx. colon polyp, frequent acid reflux risa @[facility] History of Any Multi-Drug Resistant Organisms: None Reported Past Surgical History: Hernia Repair, Orthopedic Surgery Additional Past Surgical History / Comment(s): BILATERAL SHOULDER, RIGHT KNEE,RIGHT HAND,LEFT ANKLE SURGERY,. RHINOPLASTY, salivary gland removed. Past Anesthesia/Blood Transfusion Reactions: Previous Problems w/ Anesthesia Additional Past Anesthesia/Blood Transfusion Reaction / Comment(s): "After salivary gland surgery @[facility] had bloating & nausea, was miserable for 3 days, never had any problems before." Past Psychological History: No Psychological Hx Reported Smoking Status: Never smoker Past Alcohol Use History: Occasional Past Drug Use History: None Reported - Past Family History Mother Family Medical History: No Reported History General Exam Limitations: no limitations General appearance: alert, in no apparent distress Head exam: Present: atraumatic, normocephalic, normal inspection Eye exam: Present: normal appearance, PERRL, EOMI. Absent: scleral icterus, conjunctival injection, periorbital swelling ENT exam: Present: normal exam, normal oropharynx, mucous membranes moist Neck exam: Present: normal inspection, full ROM. Absent: tenderness, meningismus, lymphadenopathy Respiratory exam: Present: normal lung sounds bilaterally. Absent: respiratory distress, wheezes, rales, rhonchi, stridor Cardiovascular Exam: Present: regular rate, normal rhythm, normal heart sounds. Absent: systolic murmur, diastolic murmur, rubs, gallop, clicks GI/Abdominal exam: Present: soft, normal bowel sounds. Absent: distended, tenderness, guarding, rebound, rigid Course Vital Signs 04/14/21 11:17 Temperature 97.6 F Pulse Rate 58 L Respiratory 18 Rate Blood Pressure 160/93 O2 Sat by Pulse 97 Oximetry Chest Pain MDM - MDM Patient's workup is negative at this time. Patient had prior stress echo which was negative. I did recommend the patient to be admitted for cardiac evaluation, repeat troponin for possible underlying cardiac issue. Patient states he feels better he does not want to stay he'll follow-up outpatient he understands the risk of leaving including . Disposition Clinical Impression: Near syncope, Palpitations Disposition: HOME SELF-CARE Condition: Stable Instructions (If sedation given, give patient instructions): Chest Pain (ED) Additional Instructions: Please return to the Emergency Department if symptoms worsen or any other conc erns. Is patient prescribed a controlled substance at d/c from ED?: No Referrals: Roxann De Paz MD [Primary Care Provider] - 1-2 days Time of Disposition: 13:27
[2021-04-14 14:16] VITALS: BP 128/79; PULSE 57
== END 2021-04-14 12:50 | disposition home or self-care (01) ==
LOC: EC 11:16
DX: R55 Syncope and collapse (principal); R00.2 Palpitations; K21.9 Gastro-esophageal reflux disease without esophagitis; E78.5 Hyperlipidemia, unspecified; Z86.010 Personal history of colon polyps
CPT/HCPCS: 36415; 71046; 80053; 83690; 83735; 83880; 84484; 85025; 85379; 85610; 85730; 93005; 96360; 99285

== ENCOUNTER → 2022-03-16 | Outpatient (CLI) | payer OTHER ==
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
--- NOTE | 2022-03-19 08:01 | FL ---
EXAMINATION TYPE: FL arthrogram shoulder LT DATE OF EXAM: 03/16/2022 CLINICAL HISTORY: Left shoulder pain. Superior labral tear. TECHNIQUE: Fluoroscopic-assisted left shoulder arthrogram. COMPARISON: None. FINDINGS: Fluoroscopic guidance was provided during left shoulder arthrogram procedure performed by myself. A total of 71 seconds of fluoroscopic time was utilized during the procedure and 1 spot fluo roscopic image was acquired. Procedure was explained the patient including benefits, alternatives, and risks. Informed consent was obtained. Overlying skin was cleansed with Betadine. Lidocaine is used as anesthetic into the skin a nd deeper tissue. A 22-gauge spinal needle is advanced into the left glenohumeral joint under fluoros copic guidance. A total of 10 cc of 50% sterile saline with 0.1 gadolinium is given with 50% Isovue-3 00. Fluoroscopic image confirms successful injection of shoulder joint. At this point spinal needle i s withdrawn. Patient tolerated procedure well without any immediate complication. Patient taken to MRI for subsequ ent MRI shoulder study. This report is dictated separately. Patient left the hospital in stable and s atisfactory condition after MRI study. IMPRESSION: As Above.
== END ==
LOC: RADFLMAIN 12:42
PROVIDERS: ATTEND Orthopaedic Surgery
DX: S43.432A Superior glenoid labrum lesion of left shoulder, initial encounter (principal)
CPT/HCPCS: 23350; 73040; 73222; A9585; Q9966

== ENCOUNTER → 2022-04-30 | Outpatient (CLI) | payer OTHER ==
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
== END | disposition home or self-care (01) ==
LOC: RADMRIMAIN 19:47
PROVIDERS: ATTEND Physical Medicine & Rehabilitation
DX: M50.23 Other cervical disc displacement, cervicothoracic region (principal); M48.02 Spinal stenosis, cervical region
CPT/HCPCS: 72141

== ENCOUNTER → 2022-09-17 | Outpatient (CLI) | payer SELFPAY ==
[2022-09-18 05:20] LABS: Basophils # (A) 0.04 X 10*3/uL (0.00-0.10); Basophils % (A) 0.6 %; Eosinophils # (A) 0.15 X 10*3/uL (0.04-0.35); Eosinophils % (A) 2.3 %; HGB 14.3 g/dL (13.0-17.0); Immature Grans, Automated 0.3 %; Lymphocytes # (A) 2.06 X 10*3/uL (0.90-5.00); Lymphocytes % (A) 31.6 %; MCH 29.3 pg (27.0-32.0); MCHC 33.3 g/dL (32.0-37.0); MCV 88.1 fL (80.0-97.0); Mean Platelet Volume 10.9 fL (9.5-12.2); Monocytes # (A) 0.48 X 10*3/uL (0.20-1.00); Monocytes % (A) 7.4 %; NRBC Per 100 WBC 0 /100 WBCS (0.0-0.0); Neutrophils # (A) 3.76 X 10*3/uL (1.80-7.70); Neutrophils % (A) 57.8 %; Platelet Count 197 X 10*3/uL (140-440); RBC 4.88 X 10*6/uL (4.40-5.60); RDW 13.2 % (11.5-14.5); WBC 6.51 X 10*3/uL (4.50-10.00)
[2022-09-18 05:43] LABS: Anion Gap 11.3 mmol/L (10.00-18.00); Carbon Dioxide 24.7 mmol/L (20.0-27.5); Potassium 3.9 mmol/L (3.5-5.5)
== END | disposition home or self-care (01) ==
LOC: LABPAT 13:43
PROVIDERS: ATTEND Orthopaedic Surgery
DX: Z01.812 Encounter for preprocedural laboratory examination (principal); M23.91 Unspecified internal derangement of right knee; I44.0 Atrioventricular block, first degree; R94.31 Abnormal electrocardiogram [ECG] [EKG]
CPT/HCPCS: 80051; 85025; 93005

== ENCOUNTER 2022-09-26 08:57 | Day surgery (SDC) | payer OTHER ==
--- NOTE | 2022-09-25 13:03 | HP ---
HISTORY AND PHYSICAL DATE OF SURGERY: 09/26/2022. HISTORY OF PRESENT ILLNESS: Bharath Simms is a 57-year-old gentleman seen with progressive right knee pain. We discussed options for treatment. He elected to proceed with right knee arthroscopy. Consent regarding the procedure was obtained. PAST MEDICAL HISTORY: Noncontributory. SURGICAL HISTORY: Right knee ACL reconstruction. DAILY MEDICATIONS: Motrin. ALLERGIES: None. SOCIAL HISTORY: Denies tobacco use. PHYSICAL EVALUATION OF RIGHT KNEE: Range of motion is -2/3 to 115 degrees. Mild effusion. Tenderness along the medial joint line, tenderness to lateral joint line. Positive medial Glenn's. Positive lateral Glenn's. Ligaments stable. Hip rotation without pain. Distal neurovascular exam is intact. 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 MRI right knee revealed medial meniscal tear and stable ACL reconstruction. IMPRESSION: 1. Internal derangement of right knee with medial meniscal tear. 2. History of right knee ACL reconstruction. PLAN: Right knee arthroscopy with partial medial meniscectomy and debridement. MMODL / IJN: [id number] /
[~2022-09-26 08:57] MED LIST changes: -DEXAMETHASONE SOD PHOSPHATE 4 MG/ML 1 ML VIAL IV PRN; -FAMOTIDINE 20 MG/2 ML VIAL IV PRN; -LACTATED RINGERS 1,000 ML IV SCH; +LIDOCAINE 1% (10MG/ML) FOR IV START INTRADERMA PRN; -MELOXICAM 7.5 MG TAB PO PRN; +MIDAZOLAM 2 MG/2 ML VIAL IV PRN; -ONDANSETRON 4 MG/2 ML VIAL IVP PRN; -OXYMETAZOLINE 0.05% NASL SPRAY 1 SPRAY BOTTLE EA NOSTRIL PRN
[2022-09-26] MEDS: LACTATED RINGERS 1,000 ML IV SCH ×2 (09:31→10:29)
[2022-09-26] MEDS ORDERED: ONDANSETRON 4 MG/2 ML VIAL ONE (09:35)
[2022-09-26] MEDS ORDERED: MIDAZOLAM 2 MG/2 ML VIAL ONE (10:27)
[2022-09-26] MEDS ORDERED: PROPOFOL 10 MG/ML 20 ML VIAL IV ONE (10:27)
[2022-09-26] MEDS ORDERED: fentaNYL (PF) 50 MCG/ML 2 ML AMP ONE (10:27)
[2022-09-26] MEDS ORDERED: LIDOCAINE 2% INJ 20 MG/ML (2 ML VIAL) ONE (10:27)
[2022-09-26] MEDS ORDERED: SUCCINYLCHOLINE CHLORIDE 200 MG/10 ML VIAL IV ONE (10:27)
[2022-09-26] MEDS ORDERED: BUPIVACAIN-EPI 0.25%-1:200,000 30 ML VIAL INTRAARTIC ONE ×2 (10:30→11:10)
[2022-09-26 11:23] VITALS: TEMP 97
--- NOTE | 2022-09-26 11:23 | P.OP ---
Date of Procedure: 09/26/22 Preoperative Diagnosis: Internal derangement right knee Postoperative Diagnosis: 1. Tear medial and lateral meniscus right knee 2. Grade 4 chondromalacia femoral sulcus right knee 3. Reactive synovitis medial, lateral and suprapatellar compartments right knee Procedure(s) Performed: 1. Arthroscopic partial medial and lateral meniscectomy right knee 2. Arthroscopic microfracture femoral sulcus right 3. Arthroscopic partial synovectomy medial, lateral and suprapatellar compartments right knee Anesthesia: GETA, local Surgeon: Ramses Iqbal Estimated Blood Loss (ml): 7 Pathology: none sent Condition: stable Disposition: PACU Indications for Procedure: 57-year-old gentleman seen with progressive right knee pain. After having treatment options discussed, he elected to proceed with arthroscopy. Operative Findings: See description of procedure Description of Procedure: Patient was taken to the operative suite. Patient underwent a general anesthetic by the department of anesthesia. Patient was given preoperative antibiotics. The right lower extremity was placed in a well-padded arthroscopic leg mcfarland. The right leg was prepped and draped in the normal sterile orthopedic fashion. A lateral parapatellar and suprapatellar incision was made. Trochars were inserted. Arthroscopy was initiated. Suprapatellar pouch revealed diffuse thick reactive synovitis. The patellofemoral joint appeared articulate congruently. There was grade 3/4 chondromalacia of the femoral sulcus with areas of osteochondral flap tears. The scope was guided into the medial gutter. No loose bodies or plica were identified. The scope was then guided into the medial compartment. A medial parapatellar incision was made. Trocar inserted followed by probe. There was a radial tear involving the posterior horn of the medial meniscus. There were grade 1 chondromalacia changes of the medial compartment without significant osteochondral flap tears being present. There was some thick reactive synovitis anteriorly. I performed a partial medial meniscectomy getting down to stable meniscal tissue. I performed a partial synovectomy decompressing the reactive synovitis. The residual meniscus was stable. There was good decompression of the synovitis. Scope and probe were then guided into the intercondylar notch. Cruciates were identified, probed and found to be stable. There was some scar tissue along the superior aspect of the intercondylar notch. This was a previous graft which was stable. I introduced a motorized shaver and debrided out some of the scar tissue in the notch. The shaver was removed. I took the knee into full extension noting good clearance of the graft and no impingement along the notch area.. The scope and probe were then guided into lateral compartment. There was a radial tear mid body lateral meniscus. There were some grade 1 chondromalacia changes of the lateral compartment without significant tears. There was thick reactive synovitis anteriorly. I performed a partial lateral meniscectomy getting down to stable meniscal tissue. I performed a partial synovectomy decompressing the reactive synovitis. The residual meniscus was stable. There was good decompression of the synovitis. The scope was in guided back into the suprapatellar compartment. I introduced a motorized shaver into the suprapatellar compartment. I performed a chondroplasty of the femoral sulc us getting down to stable osteochondral tissue. I performed a partial synovectomy decompressing the reactive synovitis. I did no areas of exposed bone. The femoral sulcus area. The exposed bone area measuring approximately 2 x 2 centimeters. I introduced a microfracture awl and I performed a microfracture into 3 separate areas penetrating the bone with resultant bleeding at the microfracture site. I again introduced a probe and probed the area and it was stable. I introduced a motorized shaver and performed a partial synovectomy. Shaver was now removed. There was good decompression of the synovitis. I took one more look around the entire knee, no residual debris. Instruments were now removed from the joint. The joint was infiltrated with .25% Marcaine. Steri-Strips were applied to the portal sites. Sterile dressings were applied. The patient was placed into a OLINDA hose. No tourniquet was utilized. The patient was awakened, transferred to a bed and taken to recovery stable satisfactory condition.
[2022-09-26] MEDS: HYDROmorphone 0.5 MG/0.5 ML SYRINGE IVP PRN ×2 (11:29→11:34)
[2022-09-26] MEDS ORDERED: HYDROcodone/APAP 5-325MG 1 EACH TAB ONE (12:29)
[2022-09-26] MEDS ORDERED: HYDROcodone/APAP 5-325MG 1 EACH TAB PO ONE (12:30)
[2022-09-26 12:55] VITALS: BP 123/77; PULSE 65; RESP 17
== END 2022-09-26 13:37 | disposition home or self-care (01) ==
LOC: OR 08:57
PROVIDERS: ATTEND Orthopaedic Surgery
DX: M23.91 Unspecified internal derangement of right knee (principal); S83.281A Other tear of lateral meniscus, current injury, right knee, initial encounter; M94.261 Chondromalacia, right knee; M65.9 Synovitis and tenosynovitis, unspecified; E78.5 Hyperlipidemia, unspecified; M19.90 Unspecified osteoarthritis, unspecified site; Z79.899 Other long term (current) drug therapy
CPT/HCPCS: 29880; 29879; J2250; J0330; J1100; J0690; J2405; J3010; J2704; J1170; J2001

== ENCOUNTER → 2023-06-25 | Outpatient (CLI) | payer BC ==
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
== END | disposition home or self-care (01) ==
LOC: RADMRIMAIN 06:36
PROVIDERS: ATTEND Orthopaedic Surgery
DX: M47.812 Spondylosis without myelopathy or radiculopathy, cervical region (principal)
CPT/HCPCS: 72141